=== PATIENT | female | born 1990 | race Caucasian/White ===

== ENCOUNTER 2023-06-22 12:22 | Outpatient (CLI) | payer MEDICAID | END 2023-06-22 23:59 | disposition home or self-care (01) | LOC: RAD 12:22 | PROVIDERS: ATTEND Physician Assistant | DX: M54.2 Cervicalgia (principal); M54.6 Pain in thoracic spine | CPT/HCPCS: 72050; 72070 ==

== ENCOUNTER 2023-06-27 21:03 | Emergency (ER) | payer MEDICAID ==
[~2023-06-27] VITALS: Ht 154.9 cm; Wt 54.5 kg
[2023-06-27 22:18] LABS: ALBUMIN 3.2 G/DL (3.4-5.0); ANION GAP 4 (8-16); BLOOD UREA NITROGEN 10 MG/DL (7-18); BUN/CREATININE RATIO 12.8 (10.0-20.0); CHLORIDE 104 MMOL/L (99-107); CREATININE 0.78 MG/DL (0.40-0.90); GLUCOSE 90 MG/DL (70-104); LIPASE 37 U/L (16-77); POTASSIUM 3.8 MMOL/L (3.5-5.1); SODIUM 139 MMOL/L (135-145); TOTAL CARBON DIOXIDE 30.8 MMOL/L (24-32); eCRCL 77 ML/MIN; eGFR 85 ML/MIN
[2023-06-27 22:20] LABS: BASOPHILS # (AUTO) 0.1 X10'3 (0-0.2); BASOPHILS % (AUTO) 0.8 % (0-1); EOSINOPHILS # (AUTO) 0.2 X10'3 (0-0.9); EOSINOPHILS % (AUTO) 2.4 % (0-6); HEMATOCRIT 39.3 % (35.0-45.0); HEMOGLOBIN 13.5 g/dl (12.0-16.0); LYMPHOCYTES # (AUTO) 2.2 X10'3 (1.1-4.8); LYMPHOCYTES % (AUTO) 28.7 % (21-51); MEAN CORPUSCULAR HEMOGLOBIN 30.9 PG (27.0-31.0); MEAN CORPUSCULAR HGB CONC 34.3 g/dL (33.0-36.5); MEAN PLATELET VOLUME 7.5 FL (7.4-10.4); MONOCYTES # (AUTO) 0.9 X10'3 (0-0.9); NEUTROPHILS # (AUTO) 4.4 X10'3 (1.8-7.7); NEUTROPHILS % (AUTO) 56.1 % (42-75); PLATELET COUNT 279 X10'3 (140-440); RED BLOOD COUNT 4.36 X10'6 (4.20-5.60); RED CELL DISTRIBUTION WIDTH 12.7 % (11.5-14.5); WHITE BLOOD COUNT 7.8 X10'3 (4.5-11.0)
[2023-06-27 22:25] LABS: CALCIUM 8.6 MG/DL (8.5-10.1)
[2023-06-28 00:52] LABS: URINE HCG NEGATIVE (NEG)
[2023-06-28] MEDS ORDERED: iohexol 300mg/ml 100ml inj. ONE (01:50)
[2023-06-28 02:14] LABS: BILIRUBIN,URINE NEGATIVE (Neg); CLARITY,URINE CLEAR (Clear); COLOR,URINE YELLOW (Yellow); GLUCOSE, URINE NEGATIVE (Neg); KETONES,URINE NEGATIVE (Neg); LEUKOCYTE ESTERASE ,URINE NEGATIVE (Neg); NITRITES, URINE NEGATIVE (Neg); OCCULT BLOOD,URINE MODERATE (Neg); PROTEIN,URINE NEGATIVE (Neg); UROBILINOGEN,URINE 0.2 E.U/dL (0.2-1.0)
[2023-06-28 02:16] LABS: UA COLLECTION TYPE CLN CATCH MIDSTREAM
[2023-06-28 02:33] LABS: BACTERIA,URINE NONE SEEN /HPF (Neg); SQUAMOUS EPITHELIAL CELL,UR FEW /LPF (FEW)
[2023-06-28 02:34] LABS: MUCUS STRANDS NONE SEEN /LPF (Neg); WBC,URINE 0-4 /HPF (0-4)
[2023-06-28] MEDS ORDERED: BISA10SU60 RC (05:45)
[2023-06-28] MEDS ORDERED: MAGN296S89 PO (05:46)
[2023-06-28] MEDS ORDERED: DOCU-148 PO (05:47)
[2023-06-28 05:51] VITALS: BP 94/54; PULSE 91; RESP 14; O2SAT 100
[2023-06-28 06:26] VITALS: TEMP 99
== END 2023-06-28 06:28 | disposition home or self-care (01) ==
LOC: ER 21:04
DX: K62.89 Other specified diseases of anus and rectum (principal); K59.00 Constipation, unspecified; R11.0 Nausea
CPT/HCPCS: 36415; 74022; 74177; 80048; 81001; 81025; 83690; 85025; 87491; 87591; 99285; J3490; Q9967